=== PATIENT | female | born 1995 | race Caucasian/White ===

== ENCOUNTER 2018-11-10 10:36 | Inpatient (IN) | payer BC, OTHER ==
[2018-11-10] MEDS ORDERED: HYDROcodone/Acetaminophen 5/325 mg Tablet PO PRN ×2 (11:24)
[2018-11-10] MEDS ORDERED: Lidocaine 1% (PF) 30 ML VIAL SC PRN (11:24)
[2018-11-10] MEDS ORDERED: Misoprostol 200 MCG TAB PR PRN (11:24)
[2018-11-10] MEDS ORDERED: Docusate 100 MG CAP PO PRN (11:24)
[2018-11-10] MEDS ORDERED: Diphenoxylate HCl/Atropine Tablet PO PRN ×2 (11:24)
[2018-11-10] MEDS ORDERED: hydrALAZINE 20 MG/ML VIAL SLOW IVP PRN ×2 (11:24→17:57)
[2018-11-10] MEDS ORDERED: Promethazine HCl 25 MG/ML VIAL IM PRN (11:24)
[2018-11-10] MEDS ORDERED: NS / Oxytocin 40 units/1000ml 1,000 ML IV PRN (11:24)
[2018-11-10] MEDS ORDERED: Ondansetron PF 4 MG/2 ML Vial IVP PRN ×2 (11:24→17:57)
[2018-11-10] MEDS ORDERED: Lactated Ringer's 1,000 ML IV SCH (11:30)
[2018-11-10] MEDS ORDERED: Clindamycin/D5W 900 MG in Premix Bag 1 BAG IVPB SCH (11:30)
[2018-11-10] MEDS ORDERED: Butorphanol Tartrate 1 MG/ML VIAL SLOW IVP PRN (11:35)
[2018-11-10 11:55] VITALS: BMI 23.6
[2018-11-10 12:38] LABS: Hemoglobin 10.9 g/dL (12.0-16.0); Mean Corpuscular HGB CONC 35.2 g/dL (32.0-36.0); Mean Corpuscular Hemoglobin 28.8 pg (27.0-31.0); Mean Corpuscular Volume 81.8 fL (78.0-98.0); Mean Platelet Volume 8.9 fL (7.4-10.4); Platelet Count 186 thou/uL (130-400); RBC Distribution Width 12.3 % (11.5-14.5); Red Blood Cell (RBC) Count 3.79 mill/uL (4.20-5.40); White Blood Cell (WBC) Count 9.1 thou/uL (4.8-10.8)
[2018-11-10 13:18] LABS: HBSAg Index 0.15 S/CO (0-0.99); Hep B Surf Ag Non-Reactive S/CO (NonReactive)
[2018-11-10 13:21] LABS: Syphilis Antibody Nonreactive (Nonreactive); Syphilis Antibody Index 0.03 S/CO (<1.00 Non-Reactive)
[2018-11-10] MEDS ORDERED: Lanolin Ointment 7 GM TUBE TOP PRN (17:57)
[2018-11-10] MEDS ORDERED: Preparation H Ointment 28 GM TUBE PR PRN (17:57)
[2018-11-10] MEDS ORDERED: Bisacodyl 10 MG SUPP PR PRN (17:57)
[2018-11-10] MEDS ORDERED: Acetaminophen/Codeine 30-300mg Tablet PO PRN ×2 (17:57)
[2018-11-10] MEDS ORDERED: Zolpidem Tartrate 5 MG TAB PO PRN (17:57)
[2018-11-10] MEDS ORDERED: Misoprostol 200 MCG TAB VAG PRN (17:57)
[2018-11-10] MEDS ORDERED: Benzocaine-Menthol 82.5 ML CAN TOP PRN (17:57)
[2018-11-10] MEDS ORDERED: diphenhydrAMINE 25 MG CAP PO PRN (17:57)
[2018-11-10] MEDS ORDERED: Milk Of Magnesia 30 ML UDCUP PO PRN (17:57)
[2018-11-10] MEDS ORDERED: Acetaminophen 500 MG TAB PO SCH (18:30)
[2018-11-10] MEDS ORDERED: Oxytocin 10 UNITS/ML VIAL ONE (19:28)
[2018-11-10] MEDS: NS / Oxytocin 40 units/1000ml 1,000 ML ONE ×2 (20:45→21:04)
[2018-11-10] MEDS ORDERED: Butorphanol Tartrate 1 MG/ML VIAL ONE ×2 (22:01)
[2018-11-10] MEDS ORDERED: Tranexamic Acid 1,000 MG/10 ML VIAL ONE (22:34)
[2018-11-10] MEDS ORDERED: Tranexamic Acid 1,000 MG in Sodium Chloride 0.9% 250 ML 250 ML IVPB SCH (23:00)
--- NOTE | 2018-11-10 23:06 | OP ---
DATE OF PROCEDURE: 11/10/2018 TIME OF SERVICE: 9593. I was contacted by the nurse to evaluate this patient for Dr. Miller approximately 3 hours status post . The patient had delivered in the low-intervention room and had continued to have some bleeding afterwards, felt to have QBL of around 750 to 1000, but that was persisting despite Cytotec and Pitocin. The patient was administered 2 mg of stadol and placed in LDR10 in stirrups for better exam with direct lighting. No significant bleeding was noted at the initiation of the procedure. A sliding speculum was placed in the vagina. The cervix and vagina were easily identified. No areas of bright red bleeding or active bleeding were noted to be significantly present. Perineal and vaginal repair by Dr. Miller was identified and noted to be intact without significant bleeding. No hematoma was appreciated. No significant supracervical bleeding was noted. My impression was that whatever degree of bleeding the patient has had , it had mostly resolved at this point in time. Seemed reasonable to go ahead and give the patient 1 g of TXA to further assure hemostasis and cessation of acute blood loss. This will be done x1 and patient will be reassessed if bleeding continues. Job ID: [id number]
[2018-11-11] MEDS: Ibuprofen 800 MG TAB PO SCH ×4 (03:07→18:24)
[2018-11-11 07:40] LABS: Hemoglobin 9.9 g/dL (12.0-16.0)
[2018-11-11] MEDS ORDERED: Adacel (T-DAP) 0.5 ML SYRINGE IM ONE (09:00)
[2018-11-11] MEDS: Docusate Calcium (SURFAK) 240 MG CAP PO SCH ×3 (10:54→21:48)
[2018-11-11] MEDS: Ferrous Sulfate 325 MG TAB PO SCH ×2 (10:57→17:11)
[2018-11-11] MEDS: Prenatal Vitamin 1 TAB PO SCH (10:57)
[2018-11-12] MEDS: Ibuprofen 800 MG TAB PO SCH ×2 (01:14→08:04)
[2018-11-12] MEDS: Ferrous Sulfate 325 MG TAB PO SCH (08:03)
[2018-11-12] MEDS: Prenatal Vitamin 1 TAB PO SCH (08:03)
[2018-11-12] MEDS: Docusate Calcium (SURFAK) 240 MG CAP PO SCH (08:04)
[2018-11-12 08:28] VITALS: BP 97/52; TEMP 98.2
[2018-11-12 09:21] LABS: Hemoglobin 9.7 g/dL (12.0-16.0)
--- NOTE | 2018-11-14 05:04 | PQF ---
[employer] Winform Viewer BLAISE SANDS L JUSTIN MD [id number] CLINICAL DOCUMENTATION CLARIFICATION FORM: POST DISCHARGE Addendum to original discharge summary date: ____ Late entry note date: __ DATE: 11/14/18 ATTN: Aleksandr Quinones Please exercise your independent, professional judgment in responding to the clarification form. Clinical indicators are provided on the bottom of this form for your review Can you please further specify the diagnosis based on the clinical indicators below? Please check appropriate box(s): [ x ] Acute blood loss anemia [ ] Post-op anemia related to acute blood loss [ ] Anemia unspecified [ x ] Other diagnosis please specify: Low intervention , declined PP pitocin [ ] Unable to determine In addition, please specify: Present on Admission (POA): [ ] Yes [ x ] No [ ] Unable to determine For continuity of documentation, please document condition throughout progress notes and discharge summary. Thank You. CLINICAL INDICATORS - SIGNS / SYMPTOMS / LABS OP Note 11/10 "EBL of around 750 to 1000" OP Note 11/10 "impression was that whatever degree of bleeding the patient has had ,it had mostly resolved at this point in time" Labs: RBC 11/10: 3.79 Labs: Hgb 11/10: 10.9 11/11: 9.9 11/12: 9.7 Labs: Hct 11/10: 31.0 11/11: 28.0 11/12: 28.0 RISK FACTORS Labor and delivery 11/10 - 39.3 weeks gestation OP Note 11/10 -s/p TREATMENTS: OP Note 11/10 -vaginal and perineal repair Labs 11/10 - Hematology monitoring Cytotec 800mcg - APR 19 IVF - APR 19 Stadol 1mg IV - APR 19 Ferrous Sulfate 325mg Oral - APR 20 (This form is maintained as a part of the permanent medical record) 2014 [employer]. All Rights Reserved Deng [email or web address] [not provided] MTDD
== END 2018-11-12 11:55 | disposition home or self-care (01) | DRG 806 ==
LOC: L&D/OP 10:36 → L&D-LIB 11:19 → 3SW 11-11 10:50
PROVIDERS: ADMIT Obstetrics & Gynecology; ATTEND Obstetrics & Gynecology
PROC: 10E0XZZ Delivery of Products of Conception, External Approach (ICD-10-PCS; principal; 2018-11-10)
PROC: 0KQM0ZZ Repair Perineum Muscle, Open Approach (ICD-10-PCS; 2018-11-10)
PROC: 3E0P7VZ Introduction of Hormone into Female Reproductive, Via Natural or Artificial Opening (ICD-10-PCS; 2018-11-10)
PROC: 3E033VJ Introduction of Other Hormone into Peripheral Vein, Percutaneous Approach (ICD-10-PCS; 2018-11-10)
DX: O99.824 Streptococcus B carrier state complicating childbirth (principal); D62 Acute posthemorrhagic anemia; Z37.0 Single live birth; O72.1 Other immediate postpartum hemorrhage; K21.9 Gastro-esophageal reflux disease without esophagitis; O99.62 Diseases of the digestive system complicating childbirth; O70.1 Second degree perineal laceration during delivery; Z3A.39 39 weeks gestation of pregnancy; Z88.0 Allergy status to penicillin; O90.81 Anemia of the puerperium
CPT/HCPCS: 36415; 85014; 85018; 85027; 86780; 86850; 86900; 86901; 87340; 90715; J0595; J2001; J2590; J3490; J7050